=== PATIENT | female | born 1980 | race Two or more races ===

== ENCOUNTER 2018-12-12 16:18 | Emergency (ER) | payer MEDICAID, OTHER ==
[~2018-12-12] VITALS: Ht 165.1 cm; Wt 152.0 kg
[2018-12-12 17:13] VITALS: BP 152/89
[2018-12-12] MEDS ORDERED: cefTRIAXone SOD 1,000 MG VL IM ONE (17:30)
== END 2018-12-12 18:02 | disposition home or self-care (01) ==
LOC: ER 16:18
DX: J03.90 Acute tonsillitis, unspecified (principal); E11.9 Type 2 diabetes mellitus without complications; I10 Essential (primary) hypertension; G89.29 Other chronic pain; M54.5 Low back pain; M25.562 Pain in left knee; M25.561 Pain in right knee
CPT/HCPCS: 96372; 99283; J0696

== ENCOUNTER 2018-12-26 22:41 | Emergency (ER) | payer MEDICAID ==
[~2018-12-26] VITALS: Ht 165.1 cm; Wt 142.0 kg
[2018-12-26 22:58] VITALS: BP 153/92
[2018-12-27] MEDS ORDERED: HYDROcodone-ACET 10/325MG TAB PO ONE (02:00)
[2018-12-27] MEDS ORDERED: BACLOFEN 10 MG TAB PO ONE (02:00)
== END 2018-12-27 02:46 | disposition home or self-care (01) ==
LOC: ER 22:47
DX: M62.830 Muscle spasm of back (principal); M54.2 Cervicalgia; R51 Headache; E11.9 Type 2 diabetes mellitus without complications; I10 Essential (primary) hypertension; W18.30XA Fall on same level, unspecified, initial encounter; Y93.E1 Activity, personal bathing and showering; Y99.8 Other external cause status; Y92.89 Other specified places as the place of occurrence of the external cause
CPT/HCPCS: 70450; 72125; 72128; 72131

== ENCOUNTER 2019-01-15 16:34 | Emergency (ER) | payer MEDICAID ==
[~2019-01-15] VITALS: Ht 165.1 cm; Wt 142.4 kg
[2019-01-15 16:40] VITALS: BP 155/87
[2019-01-15 17:24] LABS: Basophils # (auto) 0 uL; Basophils % (auto) 0.5 % (0.0-2.0); Eosinophils # (auto) 0.1 uL; Hemoglobin 13.2 g/dL (12.2-16.2); Lymphocytes # (auto) 1.4 uL; Monocytes # (auto) 0.4 uL; Monocytes % (auto) 5.1 % (0.0-12.0)
[2019-01-15 17:26] LABS: Eosinophils % (auto) 1.6 % (0.0-7.0); Hematocrit 41.5 % (36.0-46.0); Mean Corpuscular Hemoglobin 26.3 pg (28.0-32.0); Mean Corpuscular Hgb Conc. 31.7 g/dL (32.0-36.0); Neutrophils % (auto) 72.8 % (37.0-80.0); Nucleated Red Blood Cells % 0.1 %; Platelet Count (auto) 318 10^3/uL (140-450); Red Cell Distribution Width 15.8 % (11.8-14.3); White Blood Cell 6.9 10^3/uL (4.4-10.8)
[2019-01-15 17:41] LABS: Albumin 3.2 g/dL (3.4-5.0); Anion Gap 5 (5-15); Blood Urea Nitrogen 11 mg/dL (7-18); Calcium 8.7 mg/dL (8.5-10.1); Carbon Dioxide 27 mmol/L (21-32); Chloride 106 mmol/L (98-107); Glucose 125 mg/dL (74-106); Potassium 3.6 mmol/L (3.5-5.1); Sodium 138 mmol/L (136-145)
[2019-01-15 17:47] LABS: Alanine Aminotransferase 60 U/L (13-56); Alkaline Phosphatase 168 U/L (45-117); Aspartate Aminotransferase 41 U/L (15-37); BUN/Creatinine Ratio 15.1; Bilirubin, Total 0.3 mg/dL (0.2-1.0); GFR African American 116 mL/min; GFR Non-African American 96 mL/min; Total Protein 7.6 g/dL (6.4-8.2)
[2019-01-15 17:56] LABS: Urine Bacteria FEW /hpf (None Seen); Urine Blood 2+ /uL (Negative); Urine Specific Gravity 1.016 (1.001-1.035); Urine WBC 27 /hpf (0 - 5)
== END 2019-01-16 00:30 | disposition left against medical advice (07) ==
LOC: ER 16:34
DX: R07.89 Other chest pain (principal); M25.512 Pain in left shoulder; Z53.21 Procedure and treatment not carried out due to patient leaving prior to being seen by health care provider
CPT/HCPCS: 36415; 71046; 80053; 81001; 84484; 85025; 93005

== ENCOUNTER 2019-04-05 22:52 | Emergency (ER) | payer MEDICAID ==
[~2019-04-05] VITALS: Ht 167.6 cm; Wt 68.0 kg
[~2019-04-05 22:52] MED LIST: ASPI81CH4 PO; ATOR20TA PO; BACL10TA PO; CITA10TA59 PO; LISI-275 PO; LITH300C3 PO; LORA1TAB12 PO; METF-370 PO; QUET200T3 PO
[2019-04-06 01:22] LABS: Basophils # (auto) 0 uL; Basophils % (auto) 0.4 % (0.0-2.0); Eosinophils # (auto) 0.2 uL; Eosinophils % (auto) 2.1 % (0.0-7.0); Hematocrit 38.7 % (36.0-46.0); Hemoglobin 12.4 g/dL (12.2-16.2); Lymphocytes % (auto) 19.6 % (10.0-50.0); Mean Corpuscular Hemoglobin 26.1 pg (28.0-32.0); Mean Corpuscular Volume 81.7 fL (80.0-100.0); Monocytes # (auto) 0.6 uL; Monocytes % (auto) 6.4 % (0.0-12.0); Neutrophils # (auto) 7.2 uL; Neutrophils % (auto) 71.5 % (37.0-80.0); Platelet Count (auto) 355 10^3/uL (140-450); Red Blood Cells 4.74 10^6/uL (4.0-5.20); Red Cell Distribution Width 17.5 % (11.8-14.3); White Blood Cell 10.1 10^3/uL (4.4-10.8)
[2019-04-06] MEDS ORDERED: NITROGLYCERIN 0.4 MG SL TAB SL ONE (01:30)
[2019-04-06] MEDS ORDERED: ONDANSETRON HCL 4 MG/2 ML VIAL IV ONE (01:30)
[2019-04-06] MEDS ORDERED: ASPirin 325 MG TAB PO ONE (01:30)
[2019-04-06] MEDS ORDERED: MORPHINE SULF INJ 2 MG/ML SYRINGE 1ML IV ONE ×3 (01:30→06:15)
[2019-04-06 01:37] LABS: INR 0.94 (0.9-1.15); Partial Thromboplastin Time 24.6 sec (23.64-32.05)
[2019-04-06 01:39] LABS: Alanine Aminotransferase 54 U/L (13-56); Albumin 3.3 g/dL (3.4-5.0); Anion Gap 11 (5-15); Aspartate Aminotransferase 25 U/L (15-37); BUN/Creatinine Ratio 10.8; Blood Urea Nitrogen 9 mg/dL (7-18); Calcium 9.5 mg/dL (8.5-10.1); Carbon Dioxide 24 mmol/L (21-32); Chloride 106 mmol/L (98-107); GFR African American 100 mL/min; GFR Non-African American 83 mL/min; Glucose 133 mg/dL (74-106); Potassium 3.8 mmol/L (3.5-5.1); Sodium 141 mmol/L (136-145)
[2019-04-06 01:44] LABS: Alkaline Phosphatase 164 U/L (45-117); Bilirubin, Total 0.2 mg/dL (0.2-1.0); Total Protein 7.4 g/dL (6.4-8.2)
[2019-04-06 07:50] VITALS: BP 108/70
== END 2019-04-06 08:20 | disposition short-term general hospital (02) ==
LOC: ER 22:52 → EDBD 22:52 → ER 04-06 08:20
DX: I25.9 Chronic ischemic heart disease, unspecified (principal); I10 Essential (primary) hypertension; E11.9 Type 2 diabetes mellitus without complications; J45.909 Unspecified asthma, uncomplicated; F12.10 Cannabis abuse, uncomplicated; Z90.49 Acquired absence of other specified parts of digestive tract
CPT/HCPCS: 36415; 71046; 80053; 82962; 83880; 84484; 85025; 85610; 85730; 93005; 94761; 96374; 96375; 96376; 99285; J2270; J2405

== ENCOUNTER 2019-04-12 15:05 | Inpatient (IN) | payer MEDICAID | END 2019-04-13 11:30 | disposition left against medical advice (07) | LOC: ER 15:05 → TELE-WESTW 19:54 → TELE 17:50 → TELE-WESTW 20:09 | DX: K92.2 Gastrointestinal hemorrhage, unspecified (principal); N20.0 Calculus of kidney; N39.0 Urinary tract infection, site not specified ==

== ENCOUNTER 2019-04-13 20:48 | Emergency (ER) | payer MEDICAID ==
[~2019-04-13] VITALS: Ht 165.1 cm; Wt 157.9 kg
[~2019-04-13 20:48] MED LIST changes: -ASPI81CH4 PO; -ATOR20TA PO; -BACL10TA PO; +CYCL-611 PO; +GABA-339 PO; +HYDR-4798 PO; +HYDR50TA69 PO; -QUET200T3 PO; +QUET400T PO
[2019-04-14 04:11] LABS: Monocytes # (auto) 0.6 uL; Monocytes % (auto) 6.3 % (0.0-12.0)
[2019-04-14 04:12] LABS: Basophils # (auto) 0 uL; Basophils % (auto) 0.4 % (0.0-2.0); Eosinophils # (auto) 0.2 uL; Eosinophils % (auto) 2.2 % (0.0-7.0); Hematocrit 36.4 % (36.0-46.0); Hemoglobin 11.8 g/dL (12.2-16.2); Mean Corpuscular Hemoglobin 26.7 pg (28.0-32.0); Mean Corpuscular Hgb Conc. 32.4 g/dL (32.0-36.0); Mean Corpuscular Volume 82.2 fL (80.0-100.0); Neutrophils # (auto) 7.1 uL; Neutrophils % (auto) 71.1 % (37.0-80.0); Platelet Count (auto) 300 10^3/uL (140-450); Red Blood Cells 4.42 10^6/uL (4.0-5.20); Red Cell Distribution Width 17.6 % (11.8-14.3)
[2019-04-14] MEDS ORDERED: HYDROcodone-ACET 10/325MG TAB PO ONE (04:15)
[2019-04-14 04:25] LABS: Albumin 3.5 g/dL (3.4-5.0); Anion Gap 6 (5-15); Blood Urea Nitrogen 12 mg/dL (7-18); Calcium 8.6 mg/dL (8.5-10.1); Carbon Dioxide 24 mmol/L (21-32); Chloride 108 mmol/L (98-107); Glucose 139 mg/dL (74-106); Potassium 4.1 mmol/L (3.5-5.1); Sodium 138 mmol/L (136-145)
[2019-04-14 04:32] LABS: Alanine Aminotransferase 55 U/L (13-56); Alkaline Phosphatase 176 U/L (45-117); Aspartate Aminotransferase 30 U/L (15-37); BUN/Creatinine Ratio 12.9; Bilirubin, Total 0.3 mg/dL (0.2-1.0); GFR African American 88 mL/min; GFR Non-African American 73 mL/min; Total Protein 7.4 g/dL (6.4-8.2)
[2019-04-14 05:40] VITALS: BP 117/59
[2019-04-14 06:36] LABS: Urine Bacteria FEW /hpf (None Seen); Urine Blood Negative /uL (Negative); Urine Hyaline Cast FEW /lpf (0 - 2); Urine Mucus FEW (None Seen); Urine Specific Gravity 1.032 (1.001-1.035); Urine WBC 41 /hpf (0 - 5)
== END 2019-04-14 05:45 | disposition home or self-care (01) ==
LOC: EDBD 20:48 → EDUNIT# 20:48 → ER 20:52
DX: R07.89 Other chest pain (principal); R10.9 Unspecified abdominal pain; K62.5 Hemorrhage of anus and rectum; Z86.73 Personal history of transient ischemic attack (TIA), and cerebral infarction without residual deficits; E11.9 Type 2 diabetes mellitus without complications; I10 Essential (primary) hypertension; F12.90 Cannabis use, unspecified, uncomplicated; F15.90 Other stimulant use, unspecified, uncomplicated; Z79.82 Long term (current) use of aspirin; Z79.84 Long term (current) use of oral hypoglycemic drugs; Z79.899 Other long term (current) drug therapy; Z87.442 Personal history of urinary calculi; Z90.49 Acquired absence of other specified parts of digestive tract
CPT/HCPCS: 36415; 71045; 80053; 81001; 84484; 85025; 93005

== ENCOUNTER 2019-04-22 13:23 | Emergency (ER) | payer MEDICAID ==
[~2019-04-22] VITALS: Ht 165.1 cm; Wt 154.2 kg
[2019-04-22 14:43] LABS: Eosinophils # (auto) 0.2 uL; Lymphocytes # (auto) 1.5 uL; Monocytes # (auto) 0.6 uL
[2019-04-22 14:45] LABS: Basophils # (auto) 0.1 uL; Basophils % (auto) 0.5 % (0.0-2.0); Eosinophils % (auto) 1.7 % (0.0-7.0); Hematocrit 38.6 % (36.0-46.0); Hemoglobin 12.4 g/dL (12.2-16.2); Lymphocytes % (auto) 14.9 % (10.0-50.0); Mean Corpuscular Hemoglobin 26.3 pg (28.0-32.0); Monocytes % (auto) 5.9 % (0.0-12.0); Neutrophils # (auto) 7.8 uL; Nucleated Red Blood Cells % 0.1 %; Platelet Count (auto) 296 10^3/uL (140-450); Red Blood Cells 4.71 10^6/uL (4.0-5.20); Red Cell Distribution Width 17.3 % (11.8-14.3); White Blood Cell 10.2 10^3/uL (4.4-10.8)
[2019-04-22 14:50] LABS: Alanine Aminotransferase 42 U/L (13-56); Albumin 3.5 g/dL (3.4-5.0); Anion Gap 11 (5-15); Aspartate Aminotransferase 19 U/L (15-37); BUN/Creatinine Ratio 14.3; Blood Urea Nitrogen 13 mg/dL (7-18); Calcium 8.9 mg/dL (8.5-10.1); Carbon Dioxide 24 mmol/L (21-32); Chloride 105 mmol/L (98-107); GFR African American 90 mL/min; GFR Non-African American 74 mL/min; Glucose 131 mg/dL (74-106); Potassium 4.2 mmol/L (3.5-5.1); Sodium 140 mmol/L (136-145)
[2019-04-22 14:54] LABS: Alkaline Phosphatase 13 U/L (45-117); Bilirubin, Total 0.3 mg/dL (0.2-1.0); Total Protein 6.6 g/dL (6.4-8.2)
[2019-04-22 18:09] VITALS: BP 106/69
== END 2019-04-22 18:21 | disposition home or self-care (01) ==
LOC: ER 13:27
DX: R07.89 Other chest pain (principal); F41.9 Anxiety disorder, unspecified; J45.909 Unspecified asthma, uncomplicated; F32.9 Major depressive disorder, single episode, unspecified; E11.9 Type 2 diabetes mellitus without complications; I10 Essential (primary) hypertension; F17.200 Nicotine dependence, unspecified, uncomplicated; Z87.442 Personal history of urinary calculi; Z86.73 Personal history of transient ischemic attack (TIA), and cerebral infarction without residual deficits; Z79.899 Other long term (current) drug therapy
CPT/HCPCS: 36415; 71045; 80053; 84484; 85025; 93005

== ENCOUNTER 2019-04-24 17:32 | Emergency (ER) | payer MEDICAID ==
[~2019-04-24] VITALS: Ht 165.1 cm; Wt 154.2 kg
[2019-04-24 18:43] LABS: Alanine Aminotransferase 44 U/L (13-56); Albumin 3.3 g/dL (3.4-5.0); Anion Gap 8 (5-15); Aspartate Aminotransferase 22 U/L (15-37); BUN/Creatinine Ratio 13.5; Blood Urea Nitrogen 12 mg/dL (7-18); Calcium 8.9 mg/dL (8.5-10.1); Carbon Dioxide 24 mmol/L (21-32); Chloride 107 mmol/L (98-107); GFR African American 92 mL/min; GFR Non-African American 76 mL/min; Glucose 144 mg/dL (74-106); Potassium 3.9 mmol/L (3.5-5.1); Sodium 139 mmol/L (136-145)
[2019-04-24 18:47] LABS: Alkaline Phosphatase 162 U/L (45-117); Bilirubin, Total 0.2 mg/dL (0.2-1.0); Total Protein 7.2 g/dL (6.4-8.2)
[2019-04-24 20:30] LABS: Hemoglobin 11.9 g/dL (12.2-16.2); Monocytes # (auto) 0.7 uL; Neutrophils # (auto) 11.4 uL; Neutrophils % (auto) 81.3 % (37.0-80.0)
[2019-04-24 20:32] LABS: Basophils # (auto) 0 uL; Basophils % (auto) 0.3 % (0.0-2.0); Eosinophils # (auto) 0.1 uL; Hematocrit 38.1 % (36.0-46.0); Lymphocytes # (auto) 1.7 uL; Lymphocytes % (auto) 12.2 % (10.0-50.0); Mean Corpuscular Hemoglobin 25.8 pg (28.0-32.0); Mean Corpuscular Hgb Conc. 31.2 g/dL (32.0-36.0); Mean Corpuscular Volume 82.6 fL (80.0-100.0); Monocytes % (auto) 5.2 % (0.0-12.0); Platelet Count (auto) 291 10^3/uL (140-450); Red Blood Cells 4.61 10^6/uL (4.0-5.20); Red Cell Distribution Width 17.2 % (11.8-14.3); White Blood Cell 14.1 10^3/uL (4.4-10.8)
[2019-04-25] MEDS ORDERED: HYDROcodone-ACET 10/325MG TAB PO ONE ×3 (00:45→15:45)
[2019-04-25] MEDS ORDERED: LORazepam 0.5 MG TAB PO ONE (00:45)
[2019-04-25] MEDS ORDERED: MORPHINE SULFATE 4 MG/ML SYR/VIAL IV ONE (02:45)
[2019-04-25] MEDS ORDERED: ONDANSETRON HCL 4 MG/2 ML VIAL IV ONE (02:45)
[2019-04-25 04:25] LABS: Urine Bacteria MOD /hpf (None Seen); Urine Blood Negative /uL (Negative); Urine Specific Gravity 1.016 (1.001-1.035); Urine WBC 15 /hpf (0 - 5)
[2019-04-25] MEDS: VENLAFAXINE HCL 37.5mg XR cap PO SCH (07:40)
[2019-04-25] MEDS: LORazepam 0.5 MG TAB PO PRN ×3 (07:40→21:41)
[2019-04-25] MEDS: LITHIUM CARBONATE 300 MG TAB PO SCH ×2 (07:40→21:41)
[2019-04-25] MEDS ORDERED: traMADol HCL 50 MG TAB PO ONE (07:45)
[2019-04-25] MEDS ORDERED: ALPRAZolam 0.5 MG TAB PO ONE (11:45)
[2019-04-25] MEDS ORDERED: DOCUSATE SOD 100 MG CAP PO ONE (17:00)
[2019-04-25] MEDS: OLANZapine 5 MG TAB PO SCH (21:41)
[2019-04-25] MEDS: HYDROcodone-ACET 10/325MG TAB PO PRN (21:41)
[2019-04-26] MEDS: LORazepam 0.5 MG TAB PO PRN ×3 (05:00→22:30)
[2019-04-26] MEDS: HYDROcodone-ACET 10/325MG TAB PO PRN ×2 (05:01→06:14)
[2019-04-26] MEDS: LITHIUM CARBONATE 300 MG TAB PO SCH ×2 (09:36→22:00)
[2019-04-26] MEDS: VENLAFAXINE HCL 37.5mg XR cap PO SCH (09:37)
[2019-04-26] MEDS: HYDROcodone-ACET 5/325MG TAB PO PRN ×2 (14:33→22:38)
[2019-04-26] MEDS: OLANZapine 5 MG TAB PO SCH (22:00)
[2019-04-26] MEDS ORDERED: TEMAZEPAM 15 MG CAP PO ONE (23:15)
[2019-04-27] MEDS ORDERED: NALBUPHINE HCL 10 MG/1ml INJECTION IM ONE ×2 (02:15→16:45)
[2019-04-27] MEDS: LORazepam 0.5 MG TAB PO PRN ×3 (07:37→20:25)
[2019-04-27] MEDS: HYDROcodone-ACET 5/325MG TAB PO PRN ×2 (07:38→13:38)
[2019-04-27] MEDS: VENLAFAXINE HCL 37.5mg XR cap PO SCH (10:09)
[2019-04-27] MEDS: LITHIUM CARBONATE 300 MG TAB PO SCH ×2 (10:09→22:41)
[2019-04-27] MEDS: NALBUPHINE HCL 10 MG/1ml INJECTION IM PRN (20:25)
[2019-04-27 20:39] VITALS: BP 120/70
[2019-04-27] MEDS: OLANZapine 5 MG TAB PO SCH (22:42)
[2019-04-28] MEDS: VENLAFAXINE HCL 37.5mg XR cap PO SCH (09:30)
[2019-04-28] MEDS: LITHIUM CARBONATE 300 MG TAB PO SCH (09:30)
[2019-04-28] MEDS: NALBUPHINE HCL 10 MG/1ml INJECTION IM PRN (10:00)
== END 2019-04-28 12:02 | disposition home or self-care (01) ==
LOC: ER 17:37
DX: S93.401A Sprain of unspecified ligament of right ankle, initial encounter (principal); R45.851 Suicidal ideations; F23 Brief psychotic disorder; D72.829 Elevated white blood cell count, unspecified; F41.9 Anxiety disorder, unspecified; J45.909 Unspecified asthma, uncomplicated; E11.9 Type 2 diabetes mellitus without complications; I10 Essential (primary) hypertension; F12.90 Cannabis use, unspecified, uncomplicated; F15.90 Other stimulant use, unspecified, uncomplicated; Z79.84 Long term (current) use of oral hypoglycemic drugs; Z79.899 Other long term (current) drug therapy; Z86.73 Personal history of transient ischemic attack (TIA), and cerebral infarction without residual deficits; Z90.49 Acquired absence of other specified parts of digestive tract; Z87.442 Personal history of urinary calculi; X58.XXXA Exposure to other specified factors, initial encounter; Y93.89 Activity, other specified; Y99.8 Other external cause status; Y92.89 Other specified places as the place of occurrence of the external cause
CPT/HCPCS: 36415; 73630; 80053; 80178; 81001; 82962; 84484; 85025; 94761; 96372; 96374; 96375; 99285; J2300

== ENCOUNTER 2019-11-13 17:22 | Emergency (ER) | payer MEDICAID ==
[~2019-11-13] VITALS: Ht 165.1 cm; Wt 147.4 kg
[2019-11-13 18:43] LABS: Basophils # (auto) 0 uL; Lymphocytes # (auto) 1.1 uL; Neutrophils # (auto) 4.5 uL
[2019-11-13 18:44] LABS: Basophils % (auto) 0.7 % (0.0-2.0); Eosinophils # (auto) 0.2 uL; Hematocrit 39.8 % (36.0-46.0); Hemoglobin 12.8 g/dL (12.2-16.2); Lymphocytes % (auto) 16.9 % (10.0-50.0); Mean Corpuscular Hemoglobin 25.7 pg (28.0-32.0); Mean Corpuscular Hgb Conc. 32.3 g/dL (32.0-36.0); Mean Corpuscular Volume 79.6 fL (80.0-100.0); Monocytes # (auto) 0.5 uL; Monocytes % (auto) 8.4 % (0.0-12.0); Platelet Count (auto) 243 10^3/uL (140-450); Red Cell Distribution Width 17.2 % (11.8-14.3); White Blood Cell 6.3 10^3/uL (4.4-10.8)
[2019-11-13 18:58] LABS: Alanine Aminotransferase 62 U/L (13-56); Albumin 3.1 g/dL (3.4-5.0); Anion Gap 6 (5-15); Aspartate Aminotransferase 43 U/L (15-37); BUN/Creatinine Ratio 10.7; Blood Alcohol < 3.0 mg/dL (0-5); Blood Urea Nitrogen 9 mg/dL (7-18); Calcium 8.6 mg/dL (8.5-10.1); Carbon Dioxide 28 mmol/L (21-32); Chloride 103 mmol/L (98-107); GFR African American 98 mL/min; GFR Non-African American 81 mL/min; Glucose 155 mg/dL (74-106); Potassium 3.9 mmol/L (3.5-5.1); Salicylate < 1.7 mg/dL (2.8-20.0); Sodium 137 mmol/L (136-145)
[2019-11-13 19:01] LABS: Acetaminophen < 2.0 ug/mL (10-30)
[2019-11-13 19:02] LABS: Alkaline Phosphatase 179 U/L (45-117); Bilirubin, Total 0.1 mg/dL (0.2-1.0); Total Protein 7.5 g/dL (6.4-8.2)
[2019-11-13] MEDS ORDERED: LORazepam 0.5 MG TAB PO ONE (21:00)
[2019-11-13 23:34] VITALS: BP 125/48
[2019-11-14] MEDS ORDERED: PROMETHAZINE-DM 5 ML ORAL SYRUP PO ONE (01:15)
== END 2019-11-14 02:47 | disposition home or self-care (01) ==
LOC: ER 17:34
DX: F23 Brief psychotic disorder (principal); R45.851 Suicidal ideations; R05 Cough
CPT/HCPCS: 36415; 71045; 80053; 80320; 80329; 85025

== ENCOUNTER 2019-12-27 15:21 | Emergency (ER) | payer MEDICAID ==
[~2019-12-27] VITALS: Ht 165.1 cm; Wt 155.1 kg
[2019-12-27 17:01] LABS: Eosinophils # (auto) 0.1 uL; Hemoglobin 13.9 g/dL (12.2-16.2)
[2019-12-27 17:03] LABS: Basophils # (auto) 0 uL; Basophils % (auto) 0.4 % (0.0-2.0); Eosinophils % (auto) 1.2 % (0.0-7.0); Hematocrit 42.8 % (36.0-46.0); Lymphocytes % (auto) 19.7 % (10.0-50.0); Mean Corpuscular Hemoglobin 25.4 pg (28.0-32.0); Mean Corpuscular Hgb Conc. 32.3 g/dL (32.0-36.0); Mean Corpuscular Volume 78.7 fL (80.0-100.0); Monocytes # (auto) 0.5 uL; Monocytes % (auto) 5.5 % (0.0-12.0); Neutrophils # (auto) 7.3 uL; Neutrophils % (auto) 73.2 % (37.0-80.0); Nucleated Red Blood Cells % 0.2 %; Platelet Count (auto) 309 10^3/uL (140-450); Red Blood Cells 5.44 10^6/uL (4.0-5.20); Red Cell Distribution Width 16.1 % (11.8-14.3)
[2019-12-27 17:15] LABS: Salicylate < 1.7 mg/dL (2.8-20.0)
[2019-12-27 17:16] LABS: Acetaminophen < 2.0 ug/mL (10-30); Alanine Aminotransferase 68 U/L (13-56); Albumin 3.3 g/dL (3.4-5.0); Anion Gap 6 (5-15); Aspartate Aminotransferase 36 U/L (15-37); BUN/Creatinine Ratio 16.2; Blood Alcohol < 3.0 mg/dL (0-5); Blood Urea Nitrogen 11 mg/dL (7-18); Calcium 9.1 mg/dL (8.5-10.1); Carbon Dioxide 26 mmol/L (21-32); Chloride 104 mmol/L (98-107); GFR African American 125 mL/min; GFR Non-African American 103 mL/min; Glucose 114 mg/dL (74-106); Sodium 136 mmol/L (136-145)
[2019-12-27 17:18] LABS: Alkaline Phosphatase 190 U/L (45-117); Bilirubin, Total 0.4 mg/dL (0.2-1.0); Total Protein 8.2 g/dL (6.4-8.2)
[2019-12-27] MEDS ORDERED: LORazepam 0.5 MG TAB PO ONE ×2 (17:45→23:00)
[2019-12-27 19:18] LABS: Urine Bacteria NONE SEEN /hpf (None Seen); Urine Blood Negative /uL (Negative); Urine Mucus FEW (None Seen); Urine Specific Gravity 1.038 (1.001-1.035); Urine WBC 4 /hpf (0 - 5)
[2019-12-27 19:32] LABS: Alcohol, Urine < 3.0 mg/dL (0-5); Amphetamine Screen, Urine NEGATIVE (NEGATIVE); Barbiturate Scree,Urine NEGATIVE (NEGATIVE); Benzodiazephine Screen, Urine NEGATIVE (NEGATIVE); Cannabinoid Screen, Urine NEGATIVE (NEGATIVE); Cocaine Screen, Urine NEGATIVE (NEGATIVE); Opiate Scree,Urine NEGATIVE (NEGATIVE); Phencyclidine Screen, Urine NEGATIVE (NEGATIVE)
[2019-12-27] MEDS ORDERED: LOPERAMIDE HCL 2 MG CAP PO ONE (21:45)
[2019-12-28] MEDS: TEMAZEPAM 15 MG CAP PO PRN (03:36)
[2019-12-28] MEDS ORDERED: clonazePAM 0.5 MG TAB PO ONE ×2 (05:30→19:45)
[2019-12-28] MEDS ORDERED: LORazepam 0.5 MG TAB PO ONE (09:15)
[2019-12-28] MEDS: CITALOPRAM HYDROBR 20 MG TAB PO SCH (10:03)
[2019-12-28] MEDS: QUEtiapine FUMARATE 100 MG TAB PO SCH ×2 (10:04→22:25)
[2019-12-28] MEDS: LISINOPRIL 5 MG TAB PO SCH ×2 (10:05→22:24)
[2019-12-28] MEDS: traZODone HCL 50 MG TAB PO SCH (22:25)
[2019-12-29] MEDS: CITALOPRAM HYDROBR 20 MG TAB PO SCH (10:14)
[2019-12-29] MEDS: QUEtiapine FUMARATE 100 MG TAB PO SCH ×2 (10:14→21:42)
[2019-12-29] MEDS: LISINOPRIL 5 MG TAB PO SCH ×2 (10:17→21:42)
[2019-12-29] MEDS: HYDROcodone-ACET 7.5/325MG TAB PO PRN (20:06)
[2019-12-29] MEDS: traZODone HCL 50 MG TAB PO SCH (21:42)
[2019-12-30] MEDS: TEMAZEPAM 15 MG CAP PO PRN (00:08)
[2019-12-30] MEDS: LISINOPRIL 5 MG TAB PO SCH (11:05)
[2019-12-30] MEDS: QUEtiapine FUMARATE 100 MG TAB PO SCH (11:05)
[2019-12-30] MEDS: CITALOPRAM HYDROBR 20 MG TAB PO SCH (11:05)
[2019-12-30] MEDS: HYDROcodone-ACET 7.5/325MG TAB PO PRN (21:37)
[2019-12-30] MEDS ORDERED: LISINOPRIL 5 MG TAB ONE (23:35)
[2019-12-30] MEDS ORDERED: TEMAZEPAM 15 MG CAP ONE (23:36)
[2019-12-30] MEDS ORDERED: traZODone HCL 50 MG TAB ONE (23:36)
[2019-12-30] MEDS ORDERED: QUEtiapine FUMARATE 25 MG TAB ONE (23:36)
[2019-12-30] MEDS ORDERED: QUEtiapine FUMARATE 100 MG TAB ONE (23:37)
[2019-12-31] MEDS: traZODone HCL 50 MG TAB PO SCH (00:09)
[2019-12-31] MEDS: QUEtiapine FUMARATE 100 MG TAB PO SCH (00:10)
[2019-12-31] MEDS: LISINOPRIL 5 MG TAB PO SCH (00:10)
[2019-12-31] MEDS ORDERED: LORazepam 0.5 MG TAB PO ONE (06:30)
[2019-12-31] MEDS ORDERED: LORazepam 0.5 MG TAB ONE (06:41)
[2019-12-31 07:46] VITALS: BP 118/71
== END 2019-12-31 09:09 | disposition home or self-care (01) ==
LOC: ER 15:24
DX: R45.851 Suicidal ideations (principal); F41.9 Anxiety disorder, unspecified; J45.909 Unspecified asthma, uncomplicated; F32.9 Major depressive disorder, single episode, unspecified; E11.9 Type 2 diabetes mellitus without complications; I10 Essential (primary) hypertension
CPT/HCPCS: 36415; 71046; 80053; 80307; 80320; 80329; 81001; 84702; 85025; 93005